=== PATIENT | male | born 1955 | race Caucasian/White ===

== ENCOUNTER → 2017-10-06 | Outpatient (CLI) | payer OTHER ==
[~2017-10-06] MED LIST: ALLERGY PO; ATIVAN1 MG PO; ATORVASTATIN CA20 MG PO; LIPITOR20 MG PO; NORCO 7.5-3251 EACH PO; SENNA-S TABLET1 EA PO; TIZANIDINE HCL PO; TIZANIDINE HCL4 M1 PO; VICOPROFEN PO; Z AMLODIPINE ATO PO; Z.0.LEVAQUIN500 MG PO; Z.0.TIZANIDINE HCL4 PO; Z.0.TOPROL XL50 MG PO
--- NOTE | 2017-10-06 17:08 | Diagnostic Imaging Report ---
PROCEDURE:X-RAY ABDOMEN - KUB COMPARISON:KUB dated 01/16/17 INDICATIONS:FOLLOW UP FOR RENAL STONES. LOWER ABDOMINAL PAIN FINDINGS: There is a non-obstructed bowel-gas pattern. Numerous hepatic and splenic calcified granulomas. Bilateral pelvic sidewall surgical clips. Not significantly changed 2 mm and 3 mm left renal inferior pole calculi. There are no acute osseous abnormalities. The lung bases are clear. CONCLUSION: 2 mm and 3 mm left renal inferior pole calculi are not significantly changed from prior exam. Multiple hepatic and splenic calcified granulomas. Dictated by: Jordin Hendrickson M.D. on 10/06/2017 at 17:12 Electronically approved by: Jordin Hendrickson M.D. on 10/06/2017 at 17:12
== END ==
LOC: RAD 16:05
PROVIDERS: ATTEND Urology
DX: N20.0 Calculus of kidney (principal)
CPT/HCPCS: 74018

== ENCOUNTER → 2018-03-17 | Outpatient (CLI) | payer OTHER ==
[~2018-03-17] MED LIST changes: +CO Q-1030 MG PO; +MAGNESIUM OXID400 MG PO; +PANTOPRAZOLE SO40 MG PO; +PRISTIQ ER50 MG PO; +VITAMIN B-122000 MCG PO; +VITAMIN D32000 UNIT PO; +ZANAFLEX4 MG PO
--- NOTE | 2018-03-17 12:19 | Diagnostic Imaging Report ---
Exam: Right ankle 3 views History: Pain Comparison: None. Findings: Subacute oblique fracture of the distal fibula above the plafond and transverse fracture of the medial malleolus with displacement. Widening of the tibiofibular clear space. Dorsal and plantar calcaneal enthesophytes. Soft tissue swelling. Impression: Subacute displaced fractures of the medial and lateral malleolus with tibiofibular clear space widening. Signed by: Dr. Sahhab Westfall M.D. on 03/17/2018 12:15 PM
== END ==
LOC: RAD 11:28
PROVIDERS: ATTEND Internal Medicine
DX: M25.571 Pain in right ankle and joints of right foot (principal); Z91.81 History of falling

== ENCOUNTER → 2018-03-24 | Day surgery (SDC) | payer OTHER ==
[~2018-03-24] MED LIST changes: +BUPIVACAINE 0.25% 30ML SDV INJ ONE; +BUPIVACAINE HCL 0.5% INJ 30 ML VIAL INJ ONE; +CEFAZOLIN SOD 1 GM/D5W 50ML 50 ML IV ONE; +DEXAMETHASONE SOD PHOS INJ 4 MG/ML VIAL ONE; +FENTANYL CITRATE/PF 100MCG/2 ML INJ ONE; +HYDROMORPHONE 2MG/ML 2 MG/ML ML ONE; +LIDOCAINE HCL 2% LOCAL INJ 5 ML SDV VIAL INJ ONE; +MIDAZOLAM HCL 2 MG/2 ML VIAL ONE; +MORPHINE SULFATE INJ 4 MG/ML INJ ONE; +NEOSTIGMINE 1 MG/ML 10ML VIAL ONE; +ONDANSETRON HCL INJ 2 MG/ML VIAL ONE; +PROPOFOL IV EMULSION 10 MG/ML 20 ML VIAL ONE; +ROCURONIUM BROMIDE 10 MG/ML 5ML VIAL ONE; +SEVOFLURANE INHAL SOLN 250 ML PEN BTL ONE
--- OUTSIDE RECORDS SUMMARY | 2018-03-24 07:40 | XMS REPORT ---
Author Author [facility] Address Unknown Phone Unavailable Care Team Providers Care Productivity Engineer Name Role Phone ERIN MENESES Unavailable Unavailable HAMPEL, DARLING Unavailable Unavailable Problems This patient has no known problems. Allergies, Adverse Reactions, Alerts This patient has no known allergies or adverse reactions. Medications This patient has no known medications. Results Test Description Test Time Test Comments Text Results Atomic Results Result Comments ANKLE 3 + VIEWS RIGHT 2018-03-17 12:13:00 [place] [address] Patient Name: KRIS GHOSH MR #: [id number] : 1955 Age/Sex: 62/M Req #: [id number] Adm Physician: Ordered by: ERIN MENESES MD Report #: [id number] Location: [facility] Room/Bed: Procedure: [id number] DX/ANKLE 3 + VIEWS RIGHT Exam Date: Exam Time: REPORT STATUS: Signed Exam: Right ankle 3 views History: Pain Comparison: None. Findings: Subacute oblique fracture of the distal fibula above the plafond and transverse fracture of the medial malleolus with displacement. Widening of the tibiofibular clear space. Dorsal and plantar calcaneal enthesophytes. Soft tissue swelling. Impression: Subacute displaced fractures of the medial and lateral malleolus with tibiofibular clear space widening. Signed by: Dr. Earl Dotson M.D. on 03/17/2018 12:15 PM Dictated By: EARL DOTSON MD 1215 Transcribed By: PETTY on 03/17/18 1215 COPY TO: ERIN MENESES MD ABDOMEN-1VIEW (KUB) 2017-10-06 17:12:00 [place] [address] Patient Name: KRIS GHOSH MR #: [id number] : 1955 Age/Sex: 61/M Req #: [id number] Adm Physician: Ordered by: DARLING NUNEZ MD Report #: [id number] Location: [facility] Room/Bed: Procedure: [id number] DX/ABDOMEN-1VIEW (KUB) Exam Date: 10/06/17 Exam Time: 1630 REPORT STATUS: Signed PROCEDURE: X-RAY ABDOMEN - KUB COMPARISON: KUB dated 01/16/17 INDICATIONS: FOLLOW UP FOR RENAL STONES. LOWER ABDOMINAL PAIN FINDINGS: There is a non-obstructed bowel-gas pattern. Numerous hepatic and splenic calcified granulomas. Bilateral pelvic sidewall surgical clips. Not significantly changed 2 mm and 3 mm left renal inferior pole calculi. There are no acute osseous abnormalities. The lung bases are clear. CONCLUSION: 2 mm and 3 mm left renal inferior pole calculi are not significantly changed from prior exam. Multiple hepatic and splenic calcified granulomas. Dictated by: Jordin Lombardo M.D. on 10/06/2017 at 17:12 Electronically approved by: Jordin Lombardo M.D. on 10/06/2017 at 17:12 Dictated By: JORDIN LOMBARDO MD 11 Transcribed By: ADELINE on 10/06/171711 COPY TO: DARLING NUNEZ MD ABDOMEN-1VIEW (KUB) [place] [address] Patient Name: KRIS GHOSH MR #: [id number] : 1955 Age/Sex: 61/M Req #: [id number] Adm Physician: Ordered by: DARLING NUNEZ MD Report #: [id number] Location: [facility] Room/Bed: Procedure: [id number] DX/ABDOMEN-1VIEW (KUB) Exam Date: 01/16/17 Exam Time: 1715 REPORT STATUS: Signed PROCEDURE: X-RAY ABDOMEN - KUB COMPARISON: [facility], CT, CT ABDOMEN/PELVIS W, 04/12/2015, 9:43. [facility], DX, ABDOMEN-1VIEW (KUB), 10/22/2016, 15:44. INDICATIONS: LEFT FLANK PAIN, RENAL STONES FINDINGS: There is a non-obstructed bowel-gas pattern with moderate amount of retained stool, which partially obscures the renal shadows.. Stable 3 mm nonobstructing calculi in the inferior pole of the left renal shadow. No radiopaque densities project over the expected course of the ureters or bladder. Several rounded radiopaque densities projecting over the superior aspect of the right renal shadow are felt to represent calcified granulomas in the liver. Multiple calcified granulomata are also noted in the spleen. Bilateral pelvic metallic clips. There are no acute osseous abnormalities. Mild degenerative changes in bilateral hip joints. Degenerative disc changes in the lower lumbosacral spine. CONCLUSION: Stable 3 mm no obstructing calculi in the inferior pole of the left kidney. Sunny Curry M.D. Dictated by: Sunny Curry M.D. on 01/16/2017 at 18:53 Electronically approved by: Sunny Curry M.D. on 01/16/2017 at 18:53 Dictated By: SUNNY CURRY MD 52 Transcribed By: ADELINE on 01/16/171852 COPY TO: DARLING NUNEZ MD
--- NOTE | 2018-03-24 13:15 | Operative Report ---
DATE OF PROCEDURE: March 24, 2018 HAND SURGEON: Manuelito Terrazas PA-C The patient was brought to the operating room for induction of anesthesia. Throughout this case, my PA's assistance was necessary for retraction of soft tissue and positioning of the extremity. This allows for efficient and technically successful execution of the operation and is considered medically necessary. PREOPERATIVE DIAGNOSIS: Right bimalleolar ankle fracture. POSTOPERATIVE DIAGNOSIS: Right bimalleolar ankle fracture. PROCEDURE: Open reduction internal fixation of right bimalleolar ankle fracture. INDICATIONS: The patient is a 62-year-old gentleman who has a displaced right bimalleolar ankle fracture. The findings and options have been discussed. We have recommended open reduction with internal fixation. The risks and benefits have been explained. He states he understands and wishes to proceed. DESCRIPTION OF PROCEDURE: The patient was brought to the operating room and placed under general anesthetic. His right lower extremity was prepped and draped in a sterile manner. A preoperative time out was performed. The extremity was exsanguinated and a proximal tourniquet was inflated to 300 mmHg. Initial attention was directed towards the distal fibula. An incision was made over the lateral aspect of the ankle. The fracture site was carefully exposed and irrigated. Minimal periosteal stripping was performed. The fracture was reduced with a lobster claw reduction clamp. The fracture was fixed into an anatomic position with a 10-hole, one-third semitubular plate. Distal screws were locking to prevent backing out. This wound was irrigated and reapproximated with subcuticular Vicryl. Attention was then directed towards the medial aspect of the ankle. An incision was made and the fracture site was again carefully exposed. Minimal periosteal stripping was performed. Some of the deltoid ligament had involuted into the fracture site. This was debrided. The fracture was reduced and fixed with two 35 mm partially threaded cancellous screws. Intraoperative x-rays confirmed anatomic reduction and good positioning of all the hardware. The wounds were irrigated and further closed with subcuticular Vicryl and anita. Ten mL of 0.5% Marcaine without epinephrine was injected around the incisions. He was placed into a sterile bandage. A well-padded splint was applied. Estimated blood loss was 10 mL. At the end of the procedure, all needle and sponge counts were correct. Job#: [id number] RI
[2018-03-24 13:55] VITALS: BP 154/87
== END | disposition home or self-care (01) ==
LOC: OR 07:38
PROVIDERS: ATTEND Specialist
DX: S82.841A Displaced bimalleolar fracture of right lower leg, initial encounter for closed fracture (principal); G47.33 Obstructive sleep apnea (adult) (pediatric); I10 Essential (primary) hypertension; K21.9 Gastro-esophageal reflux disease without esophagitis; W18.39XA Other fall on same level, initial encounter; Y92.009 Unspecified place in unspecified non-institutional (private) residence as the place of occurrence of the external cause; Z88.1 Allergy status to other antibiotic agents; Z88.8 Allergy status to other drugs, medicaments and biological substances; F17.210 Nicotine dependence, cigarettes, uncomplicated; Z01.810 Encounter for preprocedural cardiovascular examination
CPT/HCPCS: 27814; 76000; 93005; C1713 ×6; J0690; J1100; J1170; J2001; J2250; J2270; J2405; J2704; J2710

== ENCOUNTER → 2018-04-20 | Outpatient (CLI) | payer OTHER ==
[~2018-04-20] MED LIST changes: -BUPIVACAINE 0.25% 30ML SDV INJ ONE; -BUPIVACAINE HCL 0.5% INJ 30 ML VIAL INJ ONE; -CEFAZOLIN SOD 1 GM/D5W 50ML 50 ML IV ONE; -DEXAMETHASONE SOD PHOS INJ 4 MG/ML VIAL ONE; -FENTANYL CITRATE/PF 100MCG/2 ML INJ ONE; -HYDROMORPHONE 2MG/ML 2 MG/ML ML ONE; -LIDOCAINE HCL 2% LOCAL INJ 5 ML SDV VIAL INJ ONE; +LIDOCAINE/PRILOCAINE 2.5-2.5% KIT ONE; -MIDAZOLAM HCL 2 MG/2 ML VIAL ONE; -MORPHINE SULFATE INJ 4 MG/ML INJ ONE; -NEOSTIGMINE 1 MG/ML 10ML VIAL ONE; -ONDANSETRON HCL INJ 2 MG/ML VIAL ONE; -PROPOFOL IV EMULSION 10 MG/ML 20 ML VIAL ONE; -ROCURONIUM BROMIDE 10 MG/ML 5ML VIAL ONE; -SEVOFLURANE INHAL SOLN 250 ML PEN BTL ONE
== END ==
LOC: WCC 09:27
PROVIDERS: ATTEND Plastic Surgery
DX: T81.89XA Other complications of procedures, not elsewhere classified, initial encounter (principal); M96.89 Other intraoperative and postprocedural complications and disorders of the musculoskeletal system; I10 Essential (primary) hypertension

== ENCOUNTER → 2018-04-27 | Outpatient (CLI) | payer OTHER ==
[~2018-04-27] MED LIST changes: -LIDOCAINE/PRILOCAINE 2.5-2.5% KIT ONE
== END ==
LOC: WCC 10:24
PROVIDERS: ATTEND Plastic Surgery
DX: T81.89XA Other complications of procedures, not elsewhere classified, initial encounter (principal); M96.89 Other intraoperative and postprocedural complications and disorders of the musculoskeletal system; I10 Essential (primary) hypertension

== ENCOUNTER → 2018-05-04 | Outpatient (CLI) | payer OTHER | LOC: WCC 10:44 | PROVIDERS: ATTEND Plastic Surgery | DX: T81.89XA Other complications of procedures, not elsewhere classified, initial encounter (principal); M96.89 Other intraoperative and postprocedural complications and disorders of the musculoskeletal system; I10 Essential (primary) hypertension ==

== ENCOUNTER → 2018-05-11 | Outpatient (CLI) | payer OTHER ==
[~2018-05-11] MED LIST changes: +LIDOCAINE/PRILOCAINE 2.5-2.5% KIT ONE
== END ==
LOC: WCC 15:00
PROVIDERS: ATTEND Plastic Surgery
DX: T81.89XA Other complications of procedures, not elsewhere classified, initial encounter (principal); M96.89 Other intraoperative and postprocedural complications and disorders of the musculoskeletal system; I10 Essential (primary) hypertension

== ENCOUNTER → 2018-06-03 | Outpatient (CLI) | payer OTHER ==
[~2018-06-03] MED LIST changes: +COLLAGENASE OINTMENT 30 GM TUBE ONE; +MUPIROCIN 2% OINT 22 GM TUBE ONE
== END ==
LOC: WCC 11:25
PROVIDERS: ATTEND Family Medicine
DX: T81.89XA Other complications of procedures, not elsewhere classified, initial encounter (principal); M96.89 Other intraoperative and postprocedural complications and disorders of the musculoskeletal system; B96.89 Other specified bacterial agents as the cause of diseases classified elsewhere; I10 Essential (primary) hypertension
CPT/HCPCS: 87071; 87075; 87186; 87205

== ENCOUNTER → 2018-06-10 | Outpatient (CLI) | payer OTHER ==
[~2018-06-10] MED LIST changes: -COLLAGENASE OINTMENT 30 GM TUBE ONE
== END ==
LOC: WCC 11:18
PROVIDERS: ATTEND Family Medicine
DX: T81.89XA Other complications of procedures, not elsewhere classified, initial encounter (principal); B95.2 Enterococcus as the cause of diseases classified elsewhere; B96.89 Other specified bacterial agents as the cause of diseases classified elsewhere; I10 Essential (primary) hypertension; M96.89 Other intraoperative and postprocedural complications and disorders of the musculoskeletal system

== ENCOUNTER → 2018-06-17 | Outpatient (CLI) | payer OTHER ==
[~2018-06-17] MED LIST changes: -LIDOCAINE/PRILOCAINE 2.5-2.5% KIT ONE; -MUPIROCIN 2% OINT 22 GM TUBE ONE
== END ==
LOC: WCC 11:58
PROVIDERS: ATTEND Family Medicine
DX: T81.89XA Other complications of procedures, not elsewhere classified, initial encounter (principal); M96.89 Other intraoperative and postprocedural complications and disorders of the musculoskeletal system; I10 Essential (primary) hypertension; B95.2 Enterococcus as the cause of diseases classified elsewhere; B96.89 Other specified bacterial agents as the cause of diseases classified elsewhere

== ENCOUNTER → 2018-06-24 | Outpatient (CLI) | payer OTHER | LOC: WCC 12:25 | PROVIDERS: ATTEND Family Medicine | DX: T81.89XA Other complications of procedures, not elsewhere classified, initial encounter (principal); M96.89 Other intraoperative and postprocedural complications and disorders of the musculoskeletal system; I10 Essential (primary) hypertension; B95.2 Enterococcus as the cause of diseases classified elsewhere; B96.89 Other specified bacterial agents as the cause of diseases classified elsewhere ==

== ENCOUNTER → 2018-07-01 | Outpatient (CLI) | payer OTHER | LOC: WCC 12:22 | PROVIDERS: ATTEND Family Medicine | DX: T81.89XA Other complications of procedures, not elsewhere classified, initial encounter (principal); M96.89 Other intraoperative and postprocedural complications and disorders of the musculoskeletal system; B95.2 Enterococcus as the cause of diseases classified elsewhere; B96.89 Other specified bacterial agents as the cause of diseases classified elsewhere; I10 Essential (primary) hypertension ==

== ENCOUNTER → 2018-07-08 | Outpatient (CLI) | payer OTHER ==
[~2018-07-08] MED LIST changes: +COLLAGENASE OINTMENT 30 GM TUBE ONE; +LIDOCAINE/PRILOCAINE 2.5-2.5% KIT ONE; +MUPIROCIN 2% OINT 22 GM TUBE ONE
== END ==
LOC: WCC 13:47
PROVIDERS: ATTEND Family Medicine
DX: T81.89XA Other complications of procedures, not elsewhere classified, initial encounter (principal); M96.89 Other intraoperative and postprocedural complications and disorders of the musculoskeletal system; I10 Essential (primary) hypertension; B95.2 Enterococcus as the cause of diseases classified elsewhere; B96.89 Other specified bacterial agents as the cause of diseases classified elsewhere

== ENCOUNTER → 2018-07-15 | Outpatient (CLI) | payer OTHER ==
[~2018-07-15] MED LIST changes: -COLLAGENASE OINTMENT 30 GM TUBE ONE; -LIDOCAINE/PRILOCAINE 2.5-2.5% KIT ONE; -MUPIROCIN 2% OINT 22 GM TUBE ONE
== END ==
LOC: WCC 11:10
PROVIDERS: ATTEND Family Medicine
DX: T81.89XA Other complications of procedures, not elsewhere classified, initial encounter (principal); M96.89 Other intraoperative and postprocedural complications and disorders of the musculoskeletal system; I10 Essential (primary) hypertension; B95.2 Enterococcus as the cause of diseases classified elsewhere; B96.89 Other specified bacterial agents as the cause of diseases classified elsewhere

== ENCOUNTER → 2018-07-22 | Outpatient (CLI) | payer OTHER | LOC: WCC 12:38 | PROVIDERS: ATTEND Family Medicine | DX: T81.89XA Other complications of procedures, not elsewhere classified, initial encounter (principal); M96.89 Other intraoperative and postprocedural complications and disorders of the musculoskeletal system; I10 Essential (primary) hypertension; B96.89 Other specified bacterial agents as the cause of diseases classified elsewhere; B95.2 Enterococcus as the cause of diseases classified elsewhere ==

== ENCOUNTER → 2018-07-29 | Outpatient (CLI) | payer OTHER | LOC: WCC 10:49 | PROVIDERS: ATTEND Family Medicine | DX: T81.89XA Other complications of procedures, not elsewhere classified, initial encounter (principal); M96.89 Other intraoperative and postprocedural complications and disorders of the musculoskeletal system; I10 Essential (primary) hypertension; B96.89 Other specified bacterial agents as the cause of diseases classified elsewhere; B95.2 Enterococcus as the cause of diseases classified elsewhere ==

== ENCOUNTER → 2018-08-05 | Outpatient (CLI) | payer OTHER ==
[~2018-08-05] MED LIST changes: +LIDOCAINE/PRILOCAINE 2.5-2.5% KIT ONE
== END ==
LOC: WCC 11:23
PROVIDERS: ATTEND Family Medicine
DX: T81.89XA Other complications of procedures, not elsewhere classified, initial encounter (principal); M96.89 Other intraoperative and postprocedural complications and disorders of the musculoskeletal system; I10 Essential (primary) hypertension; B95.2 Enterococcus as the cause of diseases classified elsewhere; B96.89 Other specified bacterial agents as the cause of diseases classified elsewhere

== ENCOUNTER → 2018-08-12 | Outpatient (CLI) | payer OTHER ==
[~2018-08-12] MED LIST changes: -LIDOCAINE/PRILOCAINE 2.5-2.5% KIT ONE
== END ==
LOC: WCC 14:34
PROVIDERS: ATTEND Family Medicine
DX: T81.89XA Other complications of procedures, not elsewhere classified, initial encounter (principal); M96.89 Other intraoperative and postprocedural complications and disorders of the musculoskeletal system; I10 Essential (primary) hypertension

== ENCOUNTER → 2018-08-19 | Outpatient (CLI) | payer OTHER | LOC: WCC 12:08 | PROVIDERS: ATTEND Family Medicine | DX: T81.89XA Other complications of procedures, not elsewhere classified, initial encounter (principal); M96.89 Other intraoperative and postprocedural complications and disorders of the musculoskeletal system; I10 Essential (primary) hypertension ==

== ENCOUNTER → 2018-08-26 | Outpatient (CLI) | payer OTHER | LOC: WCC 14:08 | PROVIDERS: ATTEND Family Medicine | DX: T81.89XA Other complications of procedures, not elsewhere classified, initial encounter (principal); M96.89 Other intraoperative and postprocedural complications and disorders of the musculoskeletal system; I10 Essential (primary) hypertension ==

== ENCOUNTER → 2018-09-02 | Outpatient (CLI) | payer OTHER | LOC: WCC 11:54 | PROVIDERS: ATTEND Family Medicine | DX: T81.89XA Other complications of procedures, not elsewhere classified, initial encounter (principal); M96.89 Other intraoperative and postprocedural complications and disorders of the musculoskeletal system; I10 Essential (primary) hypertension ==

== ENCOUNTER → 2018-09-16 | Outpatient (CLI) | payer OTHER | LOC: WCC 16:09 | PROVIDERS: ATTEND Family Medicine | DX: T81.89XA Other complications of procedures, not elsewhere classified, initial encounter (principal); I10 Essential (primary) hypertension; M96.89 Other intraoperative and postprocedural complications and disorders of the musculoskeletal system ==

== ENCOUNTER → 2018-09-30 | Outpatient (CLI) | payer OTHER | LOC: WCC 12:08 | PROVIDERS: ATTEND Family Medicine | DX: T81.89XA Other complications of procedures, not elsewhere classified, initial encounter (principal); M96.89 Other intraoperative and postprocedural complications and disorders of the musculoskeletal system; I10 Essential (primary) hypertension ==

== ENCOUNTER → 2018-12-16 | Outpatient (CLI) | payer OTHER ==
--- NOTE | 2018-12-16 14:14 | Diagnostic Imaging Report ---
Exam: KUB - 2 views Indication: Renal calculi Comparison: None Findings: Approximately 3 mm calcific density overlying the lower pole of left kidney may represent a renal calculus versus intraluminal bowel content. Numerous hepatic and splenic calcified granulomas. Nonobstructive bowel gas pattern. No free air. Mild degenerative changes of the visualized spine. Surgical clips in the pelvis. Impression: Approximately 3 mm calcific density overlying the lower pole of left kidney may represent renal calculus versus intraluminal bowel content. Scattered hepatic and splenic calcified granulomas. Signed by: Beba Galvan MD on 12/16/2018 2:11 PM
== END ==
LOC: RAD 12:12
PROVIDERS: ATTEND Internal Medicine
DX: N20.0 Calculus of kidney (principal)
CPT/HCPCS: 74018

== ENCOUNTER → 2019-12-22 | Outpatient (CLI) | payer OTHER ==
--- NOTE | 2019-12-22 12:49 | Diagnostic Imaging Report ---
Exam: KUB - 2 views Indication: Renal calculus Comparison: KUB 12/16/2018 Findings: Unchanged 3 mm left lower pole renal calculus. Again seen are numerous calcified granulomas of the liver and spleen. Atherosclerotic arterial calcifications. Nonobstructive bowel gas pattern. No free air. No acute osseous injury. Phleboliths and surgical clips within the pelvis. Impression: Unchanged 3 mm left lower pole renal calculus. Signed by: Beba Galvan MD on 12/22/2019 12:46 PM
== END ==
LOC: RAD 12:25
PROVIDERS: ATTEND Urology
DX: N20.0 Calculus of kidney (principal)
CPT/HCPCS: 74018

== ENCOUNTER → 2021-11-20 | Outpatient (CLI) | payer MEDICARE ==
[~2021-11-20] MED LIST changes: +MIDAZOLAM HCL 2 MG/2 ML VIAL ONE
== END ==
LOC: MRI 08:39
PROVIDERS: ATTEND Internal Medicine
DX: M51.36 Other intervertebral disc degeneration, lumbar region (principal); M54.16 Radiculopathy, lumbar region; M54.30 Sciatica, unspecified side; Z20.822 Contact with and (suspected) exposure to COVID-19
CPT/HCPCS: 0223U; 36415; G0378; J2250

== ENCOUNTER → 2021-12-03 | Outpatient (CLI) | payer MEDICARE ==
[~2021-12-03] MED LIST changes: -MIDAZOLAM HCL 2 MG/2 ML VIAL ONE
== END ==
LOC: MRI 12:54
PROVIDERS: ATTEND Internal Medicine
DX: M54.16 Radiculopathy, lumbar region (principal); M51.36 Other intervertebral disc degeneration, lumbar region; M54.30 Sciatica, unspecified side
CPT/HCPCS: 72148

== ENCOUNTER → 2021-12-19 | Outpatient (CLI) | payer MEDICARE | LOC: CT 11:42 | PROVIDERS: ATTEND Urology | DX: N20.0 Calculus of kidney (principal) | CPT/HCPCS: 74176 ==